=== PATIENT | female | born 1960 | race African-American/Black ===

== ENCOUNTER 2024-05-01 06:46 | Emergency (ER) | payer OTHER ==
[~2024-05-01] VITALS: Ht 156.2 cm; Wt 80.6 kg
[2024-05-01 07:24] VITALS: BP 157/86; PULSE 75; RESP 16; TEMP 98.2; O2SAT 98
== END 2024-05-01 07:44 | disposition home or self-care (01) ==
LOC: ER 06:46
DX: T16.2XXA Foreign body in left ear, initial encounter (principal); W44.8XXA Other foreign body entering into or through a natural orifice, initial encounter; Y93.89 Activity, other specified; Y92.89 Other specified places as the place of occurrence of the external cause; Y99.8 Other external cause status
CPT/HCPCS: 69200